=== PATIENT | male | born 1995 | race Caucasian/White ===

== ENCOUNTER 2020-01-04 18:13 | Emergency (ER) | payer OTHER ==
[~2020-01-04] VITALS: Ht 182.9 cm; Wt 93.0 kg
[2020-01-04] MEDS ORDERED: KEFLEX500 M1 PO (19:28)
[2020-01-04 19:35] VITALS: BP 129/90
== END 2020-01-04 19:36 | disposition home or self-care (01) ==
LOC: ER 18:13
DX: S61.211A Laceration without foreign body of left index finger without damage to nail, initial encounter (principal); S50.812A Abrasion of left forearm, initial encounter; S80.812A Abrasion, left lower leg, initial encounter; F17.210 Nicotine dependence, cigarettes, uncomplicated; W25.XXXA Contact with sharp glass, initial encounter; Y93.89 Activity, other specified; Y92.89 Other specified places as the place of occurrence of the external cause; Y99.8 Other external cause status